=== PATIENT | female | born 1975 | race Asian ===

== ENCOUNTER 2019-03-13 13:43 | Emergency (ER) | payer SELFPAY ==
--- NOTE | 2019-03-13 13:45 | PDOC ---
History of Present Illness - General Chief Complaint: Chest Pain Stated Complaint: LEFT SIDE CHEST PAIN TO SHOULDER BACK Time Seen by Provider: 03/13/19 13:45 - History of Present Illness Initial Comments: 03/13/19 16:57 Chief complaint: Lightheadedness History of present illness: Patient complains of lightheadedness with this sensation that she might black out upon standing and climbing stairs. There is been no davian syncope or loss of consciousness. She has had similar symptoms for a number of years that temporarily resolved completely and then recur, usually after long intervals of symptom-free time. Review of systems: No chest pain, palpitations shortness of breath, abdominal pain, nausea, vomiting, diarrhea, davian vertigo, visual or focal neurologic symptoms. Syncope or fainting. Symptoms usually resolve when she sits down or lies down. Past medical history: Evaluation in the past included MRI, EEG, and cardiology consultation. No definite abnormalities. Otherwise patient is healthy and takes no medication, specifically denying diabetes, high blood pressure, coronary artery disease, or neurologic disease Social/family history: Patient works as a nurse, denies alcohol tobacco or drugs , and family history is noncontributory Physical exam: Alert oriented 3 well-developed well-nourished cheerful and cooperative no acute distress Afebrile, vital signs normal. No demonstrable orthostatic changes, though patient becomes asymptomatic upon standing. Head atraumatic. PERRLA 4 mm, fundi benign with sharp disc margins good central venous pulsations no hemorrhages or exudates. Visual spencer intact confrontation ENT clear Neck supple without bruit mass or nodes Lungs clear with full breath sounds bilaterally CV regular without murmur rub or gallop Abdomen soft nontender without mass or organomegaly Neurological C2 to 12 intact. Strength full and symmetric. No focal sensory or motor deficits. Extremities no CCE Skin clear, no rash, adequate turgor and wet mucous membranes Impression: Long duration of symptoms and transient nature of symptoms make acute neurologic or cardiac disease highly unlikely. Most likely etiology is autonomic system dysfunction, transient dehydration, or psychosocial causes. Plan: Blood work and cardiac evaluation. Fluid challenge. Observation and further treatment depending on response. Past History - Past Medical History Allergies/Adverse Reactions: Allergies Allergy/AdvReac Type Severity Reaction Status Date / Time No Known Allergies Allergy Verified 03/13/19 13:44 Home Medications: Ambulatory Orders NK [No Known Home Medication] 03/13/19 *Physical Exam - Vital Signs Last Vital Signs Temp Pulse Resp BP Pulse Ox 97.5 F L 70 20 112/66 100 03/13/19 13:44 03/13/19 16:12 03/13/19 16:12 03/13/19 16:12 03/13/19 16:12 ED Treatment Course - LABORATORY CBC & Chemistry Diagram: 03/13/19 15:05 03/13/19 15:05 - ADDITIONAL ORDERS Additional order review: Laboratory Results 03/13/19 03/13/19 03/13/19 15:53 15:49 15:05 Sodium Potassium Chloride Carbon Dioxide Anion Gap BUN Creatinine Creat Clearance w eGFR Random Glucose Calcium Total Bilirubin AST ALT Alkaline Phosphatase Creatine Kinase Troponin I < 0.03 Total Protein Albumin Urine HCG, Qual Negative POC Urine HCG, Qual Negative 03/13/19 15:05 Sodium 137 Potassium 3.6 Chloride 103 Carbon Dioxide 25 Anion Gap 9 BUN 8 Creatinine 0.7 Creat Clearance w eGFR 92.22 Random Glucose 105 Calcium 9.2 Total Bilirubin 0.4 AST 26 ALT 37 Alkaline Phosphatase 105 Creatine Kinase 60 Troponin I Total Protein 7.6 Albumin 4.3 Urine HCG, Qual POC Urine HCG, Qual 03/13/19 15:05 RBC 4.32 MCV 91.0 MCHC 33.2 RDW 11.5 L MPV 11.2 H Neutrophils % 64.6 Lymphocytes % 28.0 Monocytes % 5.9 Eosinophils % 1.0 Basophils % 0.5 - Medications Given in the ED: ED Medications Discontinued Medications Generic Name Dose Route Start Last Admin Trade Name Freq PRN Reason Stop Dose Admin Sodium Chloride 1,000 mls @ 1,000 mls/hr 03/13/19 14:39 03/13/19 15:10 Normal Saline - IV 03/13/19 15:38 1,000 mls/hr ASDIR STA Administration Sodium Chloride 1,000 mls @ 1,000 mls/hr 03/13/19 15:53 03/13/19 16:15 Normal Saline - IV 03/13/19 16:52 1,000 mls/hr ASDIR STA Administration Medical Decision Making - Medical Decision Making 03/13/19 14:50 EKG: Normal sinus rhythm 66/m. Normal axes and intervals. No ST-T wave changes. Normal EKG. 03/13/19 16:11 CBC, chemistries, including cardiac enzymes, without significant abnormalities After 2 L of intravenous fluids, the patient is standing and ambulating without lightheadedness or dizziness. Her symptoms have completely resolved. There are no orthostatic changes recorded at this time in blood pressure or pulse rate 03/13/19 16:53 Since these symptoms have been intermittent for several years, the possibility of autonomic instability was discussed with the patient. Also questions of metabolic changes from hormone fluctuations in the period of menopause and the effects of fluid balance. Instructed to increase salt intake and fluids if symptoms begin to recur. Consider neurology and/or ENT evaluation for tilt table testing if these measures are unsuccessful. *DC/Admit/Observation/Transfer Diagnosis at time of Disposition: Autonomic instability - Discharge Dispostion Disposition: HOME Condition at time of disposition: Improved Decision to Admit order: No - Referrals - Patient Instructions Printed Discharge Instructions: DI for Orthostatic Hypotension Additional Instructions: Return to ER if symptoms worsen. Otherwise temporarily in the salt and fluid intake. Consider neurological and/or ENT consultation for further evaluation. - Post Discharge Activity Forms/Work/School Notes: Back to Work
[2019-03-13 14:04] VITALS: TEMP 97.5; BMI 28.0
[2019-03-13] MEDS ORDERED: SODIUM CHLORIDE 1,000 ML IV STA ×2 (14:39→15:53)
--- NOTE | 2019-03-13 15:32 | EKG ---
Test Reason : Blood Pressure : / mmHG Vent. Rate : 066 BPM Atrial Rate : 066 BPM P-R Int : 158 ms QRS Dur : 084 ms QT Int : 416 ms P-R-T Axes : 053 006 015 degrees QTc Int : 436 ms NORMAL SINUS RHYTHM NORMAL ECG NO PREVIOUS ECGS AVAILABLE Confirmed by EMILIA GORDON, YOSEF ([id number]) on 03/13/2019 3:32:09 PM Referred By: MD COTO Confirmed By:YOSEF NIETO MD
[2019-03-13 15:34] LABS: BASO % 0.5 % (0-2.0); HEMATOCRIT 39.3 % (32.4-45.2); HEMOGLOBIN 13.1 GM/dl (10.7-15.3); MCH 30.2 pg (25.7-33.7); MCHC 33.2 g/dl (32.0-36.0); MEAN PLT VOLUME 11.2 fl (7.5-11.1); MONO % 5.9 % (3.8-10.2); NEUT % 64.6 % (42.8-82.8); PLATELET COUNT 176 K/MM3 (134-434); RBC 4.32 M/mm3 (3.60-5.2); RDW 11.5 % (11.6-15.6); WHITE BLOOD COUNT 5.9 K/mm3 (4.0-10.8)
[2019-03-13 15:43] LABS: ALBUMIN 4.3 g/dl (3.4-5.0); ALK PHOS 105 U/L (45-117); ANION GAP 9 MMOL/L (8-16); BILIRUBIN,TOTAL 0.4 mg/dl (0.2-1); BLOOD UREA NITROGEN 8 mg/dl (7-18); CALCIUM 9.2 mg/dl (8.5-10); CHLORIDE 103 mmol/L (98-107); CO2 25 mmol/L (21-32); CREATININE 0.7 mg/dl (0.55-1.3); GLUCOSE,RANDOM 105 mg/dl (74-106); POTASSIUM 3.6 mmol/L (3.5-5.1); SGOT/AST 26 U/L (15-37); SGPT/ALT 37 U/L (13-61); SODIUM 137 mmol/L (136-145); TOT PROT 7.6 g/dl (6.4-8.2)
[2019-03-13 16:24] VITALS: PULSE 70
[2019-03-13 16:25] VITALS: BP 112/66
[2019-03-13 18:05] LABS: EPITHELIAL CELLS FEW /hpf
== END 2019-03-13 17:26 | disposition home or self-care (01) ==
LOC: FER 13:43
PROC: 3E0337Z Introduction of Electrolytic and Water Balance Substance into Peripheral Vein, Percutaneous Approach (ICD-10-PCS; principal; 2019-03-13)
DX: G90.8 Other disorders of autonomic nervous system (principal)
CPT/HCPCS: 36415; 80053; 81003; 81015; 81025; 82550; 84484; 84703; 85025; 93005; 99282-25; J7030

== ENCOUNTER 2020-12-02 21:14 | Emergency (ER) | payer BC, OTHER ==
[2020-12-02 21:20] VITALS: BP 108/65; PULSE 88; TEMP 99.4; BMI 25.0
[2020-12-02 22:12] LABS: BASO % 3.2 % (0-2.0); HEMATOCRIT 36.7 % (32.4-45.2); HEMOGLOBIN 12.4 GM/dl (10.7-15.3); LYMPH % 30.6 % (8-40); MCH 30.1 pg (25.7-33.7); MCHC 33.8 g/dl (32.0-36.0); MEAN CELL VOLUME 89.2 fl (80-96); MEAN PLT VOLUME 10.7 fl (7.5-11.1); MONO % 6.8 % (3.8-10.2); NEUT % 58.4 % (42.8-82.8); PLATELET COUNT 165 K/MM3 (134-434); RBC 4.11 M/mm3 (3.60-5.2); RDW 11.4 % (11.6-15.6); WHITE BLOOD COUNT 7.6 K/mm3 (4.0-10.8)
[2020-12-02 22:18] LABS: BILIRUBIN,TOTAL 0.5 mg/dl (0.2-1); CREATININE 0.8 mg/dl (0.55-1.3)
[2020-12-02 22:39] LABS: CALCIUM 9.4 mg/dl (8.5-10)
[2020-12-02] MEDS ORDERED: MECLIZINE HCL 12.5 MG TABLET PO ONE (22:39)
[2020-12-02] MEDS ORDERED: MECLIZINE HCL 12.5 MG TABLET ONE (22:45)
== END 2020-12-03 | disposition home or self-care (01) ==
LOC: FER 21:14
DX: R55 Syncope and collapse (principal); E86.0 Dehydration
CPT/HCPCS: 36415; 80053; 81003; 82550; 84484; 84703; 85025; 87086; 93005; 99284-25